=== PATIENT | female | born 1985 | race Caucasian/White ===

== ENCOUNTER 2016-12-10 01:24 | Inpatient (IN) | payer OTHER ==
[~2016-12-10] VITALS: Ht 165.1 cm; Wt 108.9 kg
[2016-12-10] MEDS ORDERED: Lactated Ringer's 1,000 ML IV PRN (16:41)
[2016-12-10] MEDS ORDERED: Methylergonovine 0.2 mg/mL Inj IM PRN (16:45)
[2016-12-10] MEDS ORDERED: Oxytocin 10 Unit/mL Inj IM PRN (16:45)
[2016-12-10] MEDS ORDERED: Hemorrhage Kit, Post Partum XX ONE (16:45)
[2016-12-10] MEDS ORDERED: Sodium Chloride LOK Flush 10 mL Syringe IVFLUSH PRN (16:45)
[2016-12-10] MEDS ORDERED: Oxytocin 30 Units/500 mL LR 30 UNITS in IV Premix 1 EACH IV PRN (16:45)
[2016-12-10] MEDS ORDERED: Carboprost 250 mCg/mL Inj IM PRN (16:45)
[2016-12-10] MEDS ORDERED: fentaNYL-PF 50 mCg/mL 2 mL Inj IVPUSH PRN (16:45)
[2016-12-10] MEDS ORDERED: Misoprostol 25 mCg/0.25 Tablet VAGINAL SCH (16:45)
[2016-12-10 18:21] LABS: Mean Corpuscular Hemoglobin 30.4 pg (27.0-35.0); Mean Corpuscular Volume 90.2 fL (81-100)
--- NOTE | 2016-12-10 18:40 | PCM.HPOB ---
Subjective Date of Service: Dec 10, 2016 Referring Provider: Admitting Physician: Shiela Goncalves MD Primary Care Physician: Americo Hernandez MD Attending Physician: Sihela Goncalves MD Chief Complaint at 40 +4 weeks, labile BP History of Present History of Present Illness Patient is a very pleasant 31-year-old who has had regular care and has an EDC of 12/06/2016 based on a first trimester ultrasound done at 8 weeks and 6 days. Weight gain in the has been 55 pounds. When she was seen last week for routine visit, her blood pressures were noted to be labile and very between 124/65 to 144/90. She also had gained 8 pounds in the week and was having swelling in her feet and lower legs. Baby was active and she was noting sporadic contractions. She had not had any vaginal bleeding or fluid leakage. She was having occasional minor headaches, but no nausea, diplopia, or other signs of illness. Nonstress test 2 were done last week including PIH labs which were reassuring. Patient was seen today in the office and is feeling quite tired and miserable and desirous of induction for postdates . Baby has been active. Blood pressure today was 134/78 in my office. She has edema from the toes up to the knees. Vaginal exam showed vertex at -3 station, cervix was soft the posterior and 75% effaced and probably fingertip os, but I had difficulty reaching this. Risks, benefits, and alternatives to induction of labor were reviewed with her and she signed consent. Recent ultrasound was also done on 11/27/2016 showing YURY of 9.5 cm, estimated weight of 3591 and normal interval growth. Baby was at the 74th percentile. OB History: (2), Para (0), Term (0), Pre-term (0), ( 1), Living Obstetrical Complications: Other (labile BP, excessive weight gain) Past Medical History Obstetrical History: She had an early termination of done in 2007 with D&C and no complications. This is her second and current . Gynecologic History: She has had Pap smears positive for HPV in her teens which were negative on follow-up. Pap smear in this showed ASCUS with positive HPV high risk noted. Pap will be repeated . She has not had any sexually transmitted diseases that she is aware of apart from this. Medical History: She has had chronic lower back pain with degenerative disc disease and a nerve root block done previously. She has had wisdom teeth extraction. She has had mild exercise-induced asthma. Surgical History: She has had a D&C done and was in teeth extraction. 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 She has completed high school and has some college courses. She quit smoking in 2011 and smoked a half a pack per day for 8 years. She did have several episodes of heavier drinking before she knew she was but has not been drinking the rest of the . She has had frequent marijuana use in the earlier part of the to help treat nausea. Hx Tobacco Use: Yes Smoking Status: Former Smoker Years of Smokin Hx Alcohol Use: Yes Hx Substance Use: Yes (patient has had regular use of marijuana prior to ) Past Family History Living Arrangement: with Family Genetic Screening/Counseling Genetic Screening/Counseling: Negative Baby father-had child w defect: No Review of Systems Constitutional: Y: Change of appitite, Dizziness Eyes: Denies: Blurred Vision, Redness, Vision Changes ENT: Denies: Dental Problems, Nasal Congestion, Nose Discharge, Ulcers/Sores in Mouth Cardiovascular: Reports: Edema, Denies: Chest Pain Respiratory: Denies: Cough Gastrointestinal: Reports: Nausea, Denies: Abdominal Pain, Constipation, Diarrhea, Vomiting Genitourinary: Denies: Dysuria Musculoskeletal: Reports: Back Pain Skin/Breasts: Denies: Bruising Skin: Denies: Jaundice Neurological: Reports: Numbness, Denies: Change in Speech Psychologic: Reports: Anxious, Denies: Depression Hematologic: Denies: Adenopathy Allergy Coded Allergies: latex (Verified Allergy, Severe, RASHES, HIVES, HYPERVENTALATE, 12/10/16) Exam Vital Signs 134/75, patient afebrile, heart rate 72, weight in office 248 pounds Exam heart rate reactive with baseline in the 140s Constitutional: Well-developed, Well-nourished, Normal habitus, Obese HEENT: PERRLA, EOMI, Mucous Membr Moist/Lofall Lungs: Clear to Auscultation, Clear to Percussion, Normal Air Movement Heart: Regular Rate/Rhythm, Normal S1, Normal S2, No Murmurs/Rubs/Gallops Abdomen: Gravid, Normal bowel sounds, Soft, No tenderness, No hepatosplenomegaly Lymphatic: Normal: Neck Palpation of Nodes Extremities: Pulses Palpable x4, Warm, Edema Neurological/Psychiatric: Alert, Oriented X3, Cooperative, No Acute Distress Neuro: Grossly Neurologically Intact Labs/Diagnostics Labs Blood type is B+ with no abnormal antibodies. Pap smear was ASCUS with positive HPV high risk. Rubella is immune, RPR nonreactive, hep B surface antigen negative, HIV negative. Urine culture showed mixed urogenital xavier Maternal Blood Type: B Hx Rho(D) Immune Globulin: No Antibody Screen: negative Group B Strep Results: Negative Previous Infant with GBS: No Rubella: Immune Lab History: Negative for: Hx Gonorrhea, Hx HIV, Hx Herpes, Hx Syphilis OB Intrapartum Assessment/Plan Assessment Patient is a pleasant 31-year-old female at 40 weeks +4 days who has had some labile blood pressures but reassuring PIH labs and reassuring NST over the last week. She has had excessive weight gain in of 55 pounds. One hour GTT was elevated at 205 but 3 hour GTT was normal. GBS is negative. She was admitted this afternoon for induction of labor and we will start with Cytotec. Risks, benefits and alternatives to this have been reviewed with her and she is desirous to proceed. Estimated weight is 7-1/2-8 pounds. Problems: (1) Post term over 40 weeks Status: Acute ICD Code: O48.0 (2) Labile blood pressure Status: Acute ICD Code: R09.89 Shiela Goncalves MD Dec 10, 2016 18:40
[2016-12-11] MEDS: Lactated Ringer's 1,000 ML IV SCH ×2 (07:43→09:28)
[2016-12-11] MEDS ORDERED: Lactated Ringer's 500 ML IV ONE (08:06)
[2016-12-11] MEDS ORDERED: Lactated Ringer's 1,000 ML IV SCH (08:06)
[2016-12-11] MEDS ORDERED: Ondansetron 2 mg/mL 2 mL Inj IVPUSH PRN (08:10)
[2016-12-11] MEDS ORDERED: EPHEDrine Sulfate 50 mg/mL Inj IVPUSH PRN (08:10)
[2016-12-11] MEDS ORDERED: Atropine 1 mg/10 mL (Code) Syringe IVPUSH PRN (08:10)
--- NOTE | 2016-12-11 08:19 | PCM.PNOBIP ---
Subjective Date of Service Dec 11, 2016 Delivery plan: Spontaneous Vaginal Delivery Visit History Patient is a pleasant 31-year-old with an EDC of 12/06/2016 who was admitted yesterday afternoon for labor induction at 40+4 weeks. She had had some labile blood pressures but NST 2 and PIH labs 2 in the previous week had been reassuring. Most recent ultrasound was done 11/27/2016 and showed YURY of 9.5 cm and baby in vertex presentation with estimated weight around 74th percentile. Vaginal exams are difficult for her but she started induction with a cervix that was soft but posterior, vertex at -3 station and fingertip loss. She received Cytotec 25 g 1 dose and kicked into labor with this. She had spontaneous rupture of membranes for clear fluid at 02:55 hrs. today and noted increase in the intensity and frequency of her contractions. She was just examined prior to my arrival this morning and was 4 cm, 50% effaced, and vertex at -3 station. heart rate is reactive with baseline in the 130s to 140s with good [id number] variability and good accelerations with no decelerations. She is currently resting having received fentanyl 100 g IV 1 dose and anesthesia has been consulted for epidural. Most recent blood pressure was 134/76, temp 36.8, his heart rate 20 and heart rate 85. After epidural is placed, Pitocin augmentation of labor will be started and vaginal delivery is anticipated later today. Pain Management: Continued Pain Issues Gastrointestinal: No N/V Activity: Other (resting in bed) Group B Strep Results: Negative Rubella: Immune Blood Type: B Labs Laboratory Tests 12/10/16 17:15: White Blood Count 13.8, Red Blood Count 4.50, Hemoglobin 13.7, Hematocrit 40.6, Mean Corpuscular Volume 90.2, Mean Corpuscular Hemoglobin 30.4, Mean Corpuscular Hemoglobin Concent 33.7, Red Cell Distribution Width 13.4, Platelet Count 226 Exam Vital Signs Vital Signs Contraction frequency in minutes: MVUs: Vital Signs: VS reviewed, stable Heart Tracings Heart Tones Baseline 135 bpm Heart Rate Variability: Moderate Heart Rate Accelleration: Present Heart Rate Deceleration: Absent Heart Rate Category: I Tocometry/IUPC Contraction frequency in minutes: MVUs: Sterile Vaginal Exam Cervical Dilation: 4 cms Cervical Effacement: 50 % Station: -3 Exam Lungs: Clear to Auscultation, Clear to Percussion, Normal Air Movement Heart: Regular Rate/Rhythm, Normal S1, Normal S2, No Murmurs/Rubs/Gallops General: Alert, Oriented X3, Cooperative OB Intrapartum Assessment/Plan Assessment Patient is a pleasant 31-year-old at 40+5 weeks today who was admitted yesterday afternoon for labor induction for postdates and labile blood pressures. She has received Cytotec 25 g PV 1 dose and has had SROM for clear fluid overnight. GBS is negative. Fentanyl has been given and she is requesting epidural which will be placed once anesthesia is available. heart rate is reassuring and vaginal delivery is anticipated. Problems: (1) Post term over 40 weeks Status: Acute ICD Code: O48.0 (2) Labile blood pressure Status: Acute ICD Code: R09.89 Intrapartum plan: Continue expected management, Start pitocin Intrapartum Pain Management: May have epidural when desired, IV Fentanyl Pain Evaluation: Pain not Controlled Shiela Goncalves MD Dec 11, 2016 08:19
[2016-12-11] MEDS: Sodium Chloride LOK Flush 10 mL Syringe IVFLUSH SCH ×2 (08:30→16:30)
--- NOTE | 2016-12-11 09:57 | PCM.HPANE ---
Patient Data Date of Service: Dec 11, 2016 Surgeon Admitting Provider:Shiela Goncalves MD Attending Provider:Shiela Goncalves MD Primary Care Physician:Americo Hernandez MD Other Provider:Leni Biswas Anesthesia Reason for Visit Induction INDUCTION Ht/WT & BMI Height (Centimeters): 165 Weight (Kilograms): 109 Body Mass Index 39.9 Allergies Coded Allergies: latex (Verified Allergy, Severe, RASHES, HIVES, HYPERVENTALATE, 12/10/16) Past Anesthesia History Anesthesia History: Denies:: Abnormal Airway, Anesthesia Reactions, Difficult Intubation Diabetes History Hx Diabetes?: No MRSA MRSA: No Medications Hypertension Medication: No Home Meds Incl Beta Allen: No History History of ENT Problems?: No HEENT History: Denies:: Abnormal Airway Difficult Intubation Denture Type: None Teeth Condition: Within Normal Limits Hx of Heart Problems?: No Cardiovascular History: Denies:: Coronary Artery Disease Hypertension Hx of Respiratory Problem?: No Respiratory History: Denies:: Asthma Hx Neurologic Problems?: No Hx of GI Problems?: No Hx of Problems?: No HX of Peritoneal Dialysis: No Female Hx: Positive for:: Currently (inductino) Hx Musculoskeletal Problems?: No Hx of Psycho/Social Problems?: Yes Psycho Social History: Positive for:: Anxiety Hx Surgeries?: No Hx Any Other Health Problems?: Yes (degenerative lumbar disease) Hx Diabetes: No Hx Alcohol Use: YesHx Substance Use: Yes (patient has had regular use of marijuana prior to ) Smoking Status: Former Smoker Stop/Bang Treated for Sleep Apnea?: No Do You Have a CPAP Machine?: No B- Body Mass Index > 35 kg/m2: Yes HILLARY Risk Assessment: High Risk, =/>3 Yes Risk Assessment Category Category 1A: Patient has history of documented sleep apnea, and HAS NOT received any narcotic, sedative or anesthesia administration during this stay. Category 1B: Patient has history of documented sleep apnea, and HAS received any narcotic , sedative or anesthesia administration during this stay Category 2: Patient has SUSPECTED Obstructive Sleep Apnea, and HAS received any narcotic , sedative or anesthesia administration during this stay. Category 3: Patient has SUSPECTED Obstructive Sleep Apnea and HAS NOT received narcotic, sedative or anesthesia administration during this stay. Category 4: Outpatient in Procedural Areas with known sleep apnea or who screen positive for High Risk via the STOP/BANG questionnaire. Exam Exam General Appearance: Alert, Oriented X3, Cooperative, Moderate Distress HEENT/AIRWAY: MP 2, Neck Movement (OK), Mouth Opening (small) Lungs: Clear to Auscultation, Normal Air Movement Heart: Regular Rate/Rhythm, Normal S1, Normal S2, No Murmurs/Rubs/Gallops Meds/Labs/Diagnostics Admission Meds Current Medications Lactated Ringer's (Lr) 1,000 ml @ 125 mls/hr Q8H IV Last administered on 07:43; Start 12/10/16 at 16:41 Misoprostol (Cytotec) 25 mcg Q4H VAGINAL Last administered on 12/10/16 18:09; Start 12/10/16 at 16:45; Stop 12/10/16 at 20:46; Status DC Labs Test 12/10/16 17:15 White Blood Count 13.8th/mm3 (3.8-10.1) Red Blood Count 4.50mil/mm3 (3.90-5.20) Hemoglobin 13.7g/dL (12.0-15.6) Hematocrit 40.6% (35.0-46.0) Mean Corpuscular Volume 90.2fL (81-100) Mean Corpuscular Hemoglobin 30.4pg (27.0-35.0) Mean Corpuscular Hemoglobin Concent 33.7% (32.0-37.0) Red Cell Distribution Width 13.4% (12.3-15.4) Platelet Count 226bil/L (150-400) Plan Impression Patient chart reviewed, patient interviewed and anesthestic plan with risks, benefits, and alternatives discussed, and informed consent obtained. NPO per Anesth. Guidelines: No ASA Physical Status: ASA3 Severe Disease (morbid obesity) Anesthetic Plan: SAB Bene/Risks/Altern/Consents: Yes HP Complete Prior to Induction: Yes Clemente Jordan MD Dec 11, 2016 08:09
[2016-12-11] MEDS ORDERED: Carboprost 250 mCg/mL Inj IM ONE (12:00)
[2016-12-11] MEDS ORDERED: Acetaminophen IV 1,000 mg IV PRN (13:45)
[2016-12-11] MEDS: fentaNYL 2 mCg/mL-Bupiv 0.125% 100 ML EPIDURAL SCH ×2 (16:50→22:36)
--- NOTE | 2016-12-11 20:35 | PCM.PNOBIP ---
Subjective Date of Service Dec 11, 2016 Delivery plan: Spontaneous Vaginal Delivery Visit History Patient has been laboring all day, and when examined at 13:00 hrs, was noted to be only 2cm, 100% effaced with vertex at -3 station. Patient was challenging to examine, as she found the pelvic exams very uncomfortable. She had had epidural placed earlier, and had been sleeping, and had finally relaxed enough for an accurate pelvic exam. Over the afternoon, she had made much better progress, and has been dilating about 1 cm per hour since reaching 3 cm. When re-examined at 20:00 hours, she was noted to be 9 cm, 100% effaced, and vertex is at-2 station. The head is asynclitic, with caput noted. Scant blood tinged amniotic fluid is noted, with normal bloody show. FHR baseline is in the 130's with good BTBV. There are sleep wake cycles noted, and she is alana every 1 to 3 minutes. Her position has been changed multiple times and she has had epidural top up earlier on. is still anticipated. Pain Management: Epidural, Continued Pain Issues Gastrointestinal: No N/V Activity: Other (resting comfortably in bed) Group B Strep Results: Negative Rubella: Immune Blood Type: B Labs Laboratory Tests 12/10/16 17:15: White Blood Count 13.8, Red Blood Count 4.50, Hemoglobin 13.7, Hematocrit 40.6, Mean Corpuscular Volume 90.2, Mean Corpuscular Hemoglobin 30.4, Mean Corpuscular Hemoglobin Concent 33.7, Red Cell Distribution Width 13.4, Platelet Count 226 Exam Vital Signs Vital Signs Contraction frequency in minutes: MVUs: Vital Signs: VS reviewed, stable Heart Tracings Heart Tones Baseline 135 bpm Heart Rate Variability: Moderate Heart Rate Accelleration: Present Heart Rate Deceleration: Absent Heart Rate Category: I Tocometry/IUPC Contraction frequency in minutes: MVUs: Sterile Vaginal Exam Cervical Dilation: 9 cms Cervical Effacement: 100 % Station: -2 Exam Lungs: Clear to Auscultation, Normal Air Movement Heart: Regular Rate/Rhythm, Normal S1, Normal S2, No Murmurs/Rubs/Gallops General: Alert, Oriented X3, Cooperative OB Intrapartum Assessment/Plan Assessment 31 year old at 40+5 weeks admitted yesterday afternoon for labor induction for post dates and labile BP. She made slow progress in latent stage of labor, and did not tolerate labor well, pain vega. Her epidural is working effectively, and she is making good progress in active labor. The baby's head is asynclitic. She had SROM 02:55 hrs ( > 18 hours ago). Ampicillin will be started; GBS is negative. is anticipated. Problems: (1) Post term over 40 weeks Status: Acute ICD Code: O48.0 (2) Labile blood pressure Status: Acute ICD Code: R09.89 Intrapartum plan: Continue expected management, Start pitocin Intrapartum Pain Management: IV Fentanyl, Epidural Pain Evaluation: Adequate Pain Control Intrapartum Antibiotics: Ampicillin Shiela Goncalves MD Dec 11, 2016 20:35
[2016-12-11] MEDS ORDERED: Ampicillin Inj 2,000 MG in 0.9% Sodium Chloride 100 ML IV ONE (20:40)
[2016-12-12] MEDS: SODIUM CHLORIDE 0.9% IV SCH ×4 (00:44→12:30)
[2016-12-12] MEDS: AMPICILLIN IV SCH ×4 (00:44→12:30)
--- NOTE | 2016-12-12 03:36 | PCM.PNOBIP ---
Subjective Date of Service Dec 12, 2016 Delivery plan: Spontaneous Vaginal Delivery Visit History Patient has been laboring overnight and at 22:00 on 12/11/2016 she had an anterior lip of cervix from 9 o'clock up and around to 1 to 2 o'clock. Caput persists and is 1 to 2 cm thick on the asynclitic head. Maternal position has been changed multiple times, and ampicillin was started, she has received 2 doses thus far, temp 37.4 to 37.6 range. FHR baseline was 145 to 150's and variability was less. She is on her 6th bag of IV fluids, shin was removed earlier, as we have tried pushing over several episodes, while reducing the cervix, but this has persisted. Mother has alot of soft tissue in the perineal area. Pitocin has been increased to 22 milliunits and she has been ruptured over 24 hours. Contractions have spaced out to every 3 minutes and her epidural has been effective for her. She is nearly at 6 hours with no cervical change. Pain Management: Epidural Gastrointestinal: No N/V Activity: Other (resting comfortably in bed) Group B Strep Results: Negative Rubella: Immune Blood Type: B Labs Laboratory Tests 12/10/16 17:15: White Blood Count 13.8, Red Blood Count 4.50, Hemoglobin 13.7, Hematocrit 40.6, Mean Corpuscular Volume 90.2, Mean Corpuscular Hemoglobin 30.4, Mean Corpuscular Hemoglobin Concent 33.7, Red Cell Distribution Width 13.4, Platelet Count 226 Exam Vital Signs Vital Signs Contraction frequency in minutes: MVUs: Vital Signs: VS reviewed, concerns are (temp 37.4 to 37.6 range) Heart Tracings Heart Tones Baseline 145 to 150 bpm Tocometry/IUPC Contraction frequency in minutes: MVUs: Sterile Vaginal Exam Cervical Dilation: 9 cms Cervical Effacement: 100 % Station: -1 Exam Lungs: Clear to Auscultation, Normal Air Movement Heart: Regular Rate/Rhythm, Normal S1, Normal S2, No Murmurs/Rubs/Gallops General: Alert, Oriented X3, Cooperative OB Intrapartum Assessment/Plan Assessment 31 year old at 40 +5 weeks who was admitted on 12/10/2016 for post-dates and labile BP, and received cytotec 25mcg PV x 1 dose which started her into labor. She had SROM for clear fluid at 02:55 on 12/11/2016 and has been on pitocin for hours, dose currently at 22 milliunits per minute. Her epidural has been topped up 3 times and patient's tolerance of labor pain has been hard for her. We have changed position multiple times, and she is on her 6th bag of IV fluids. FHR is 140 to 150's, with some variability. A cervical lip has persisted for nearly 6 hours now. Mom is currently resting. Primary c/section may be warranted, given lack of progress in labor. She is obese and has gained 55lbs in the , and has alot of soft tissue in the pelvis that is difficult for the baby to descend thru. Problems: (1) Post term over 40 weeks Status: Acute ICD Code: O48.0 (2) Labile blood pressure Status: Acute ICD Code: R09.89 Intrapartum plan: Continue expected management, Start pitocin Intrapartum Pain Management: IV Fentanyl, Epidural Pain Evaluation: Adequate Pain Control Intrapartum Antibiotics: Ampicillin Shiela Goncalves MD Dec 12, 2016 03:35
[2016-12-12] MEDS ORDERED: Sodium Citrate-Citric Acid 15 mL Solution ONE (04:28)
[2016-12-12] MEDS ORDERED: Atropine 0.4 mg/mL Inj IV PRN (05:20)
[2016-12-12] MEDS ORDERED: fentaNYL-PF 50 mCg/mL 2 mL Inj IVPUSH PRN (05:20)
[2016-12-12] MEDS ORDERED: EPHEDrine Sulfate 50 mg/mL Inj IVPUSH PRN (05:20)
--- NOTE | 2016-12-12 06:31 | PCM.CONSUR ---
Subjective Date of Service: Dec 12, 2016 History of Present Illness Patient is a very pleasant 31-year-old who has had regular care with Dr. Shiela Goncalves and has an EDC of 12/06/2016 based on a first trimester ultrasound done at 8 weeks and 6 days. Weight gain in the has been 55 pounds. She was seen last week for routine visit, her blood pressures were noted to be labile and vary between 124/65 to 144/90. She also had gained 8 pounds in the week and was having swelling in her feet and lower legs. Baby was active and she was noting sporadic contractions. She had not had any vaginal bleeding or fluid leakage. She was having occasional minor headaches, but no nausea, diplopia, or other signs of illness. Nonstress test 2 were done last week including PIH labs which were reassuring. Patient was seen in the office and is feeling quite tired and miserable and desirous of induction for postdates . Baby has been active. Blood pressure was 134/78 in my office. She has edema from the toes up to the knees. Vaginal exam showed vertex at -3 station, cervix was soft the posterior and 75% effaced and probably fingertip os, but I had difficulty reaching this. Risks, benefits , and alternatives to induction of labor were reviewed with her and she signed consent. Recent ultrasound was also done on 11/27/2016 showing YURY of 9.5 cm, estimated weight of 3591 and normal interval growth. Baby was at the 74th percentile. OB History: (2), Para (0), Term (0), Pre-term (0), ( 1), Living Obstetrical Complications: Other (labile BP, excessive weight gain) The patient was admitted for induction of labor by Dr. Goncalves and she progressed to 9cm, however she failed to make any further change for 7hours. I was consulted to perform a for failure to progress. Reason for Consultation Primary delivery for failure to progress. Allergy Allergies: Coded Allergies: latex (Verified Allergy, Severe, RASHES, HIVES, HYPERVENTALATE, 12/10/16) Medications Hypertension Medication: No Home Meds Incl Beta Blockers: No Past Surgical History Surgeries: No Patient/Family Past Surgical: Denies:: Anesthesia Reactions Social History Hx Alcohol Use: Yes Hx Substance Use: Yes (patient has had regular use of marijuana prior to ) Hx Tobacco Use: Yes Years of Smokin PMH HEENT History History of ENT Problems?: No HEENT History: Denies:: Abnormal Airway Difficult Intubation Cardiovascular History History of Heart Problems?: No Cardiovascular History: Denies:: Coronary Artery Disease Hypertension Respiratory History of Respiratory Problem: No Respiratory History: Denies:: Asthma Neurological History Hx Neurologic Problems?: No Gastrointestinal History HX of GI Problems?: No Genitourinary History Hx of Gu Problems?: No Female/Male History Reproductive History Female: Positive for: Currently ? (inductino) Musculoskeletal History Hx Musculoskeletal Problems?: No Psycho Social History Hx of Psycho/Social Problems?: Yes Psycho Social History: Positive for:: Anxiety Other History Hx Any Other Health Problems?: Yes (degenerative lumbar disease) Diabetes: No Social History Hx Alcohol Use: YesHx Substance Use: Yes (patient has had regular use of marijuana prior to )Hx Tobacco Use: Yes Smoking Status: Former Smoker Years of Smokin Objective Exam Result Diagram: 12/10/16 1715 Review of Systems: Constitutional: Negative, except as otherwise mentioned in the history above. Ophthalmologic: Negative, except as otherwise mentioned in the history above. Cardiovascular: Negative, except as otherwise mentioned in the history above. Respiratory: Negative, except as otherwise mentioned in the history above. Gastrointestinal: Negative, except as otherwise mentioned in the history above. Genitourinary: Negative, except as otherwise mentioned in the history above. Musculoskeletal: Negative, except as otherwise mentioned in the history above. Neurological: Negative, except as otherwise mentioned in the history above. Psychiatric: Negative, except as otherwise mentioned in the history above. Hematologic/Lymphatic: Negative, except as otherwise mentioned in the history above. Allergic/Immunologic: Negative, except as otherwise mentioned in the history above. H&P Surgical Exam Exam General: Alert, Oriented X3, Cooperative Assessment & Plan Problems: (1) Post term over 40 weeks Status: Acute ICD Code: O48.0 (2) Labile blood pressure Status: Acute ICD Code: R09.89 (3) Failure to progress in labor, delivered, current hospitalization Plan: Plan for primary delivery. The risks of delivery were explained to the patient and informed consent was signed. Status: Acute ICD Code: O62.2 Ike Adams MD Dec 12, 2016 06:31
[2016-12-12] MEDS ORDERED: Lactated Ringer's 1,000 ML IV SCH (06:32)
[2016-12-12] MEDS ORDERED: Methylergonovine 0.2 mg/mL Inj IM PRN (06:35)
[2016-12-12] MEDS ORDERED: Oxytocin 30 Units/500 mL LR 30 UNITS in IV Premix 1 EACH IV PRN (06:35)
[2016-12-12] MEDS ORDERED: Acetaminophen IV 1,000 MG in IV Premix 1 EACH IV PRN (06:35)
[2016-12-12] MEDS ORDERED: hydrOXYzine Pamoate 25 mg Capsule PO PRN (06:35)
[2016-12-12] MEDS ORDERED: Sodium Chloride LOK Flush 10 mL Syringe IVFLUSH PRN (06:35)
[2016-12-12] MEDS ORDERED: LANOlin HPA 7 Gm Ointment TOPICAL PRN (06:35)
[2016-12-12] MEDS ORDERED: Oxytocin 10 Unit/mL Inj IM PRN (06:35)
[2016-12-12] MEDS ORDERED: Carboprost 250 mCg/mL Inj IM PRN (06:35)
[2016-12-12] MEDS ORDERED: Hemorrhage Kit, Post Partum XX ONE (06:35)
[2016-12-12] MEDS ORDERED: diphenhydrAMINE 50 mg Capsule PO PRN (06:35)
--- NOTE | 2016-12-12 06:50 | PCM.ANEP1 ---
Post Anesthesia PACU Phase 1 Assessment Date of Service: Dec 12, 2016 Vital Signs See Anesthetic record and OB documentation Anesthetic Administered: Epidural Level of Alertness: Awake, talking LUNA's with Equal Strength: No Pain: No Pain Scale Score: 0 Nausea or Vomiting: No CV Function & Hydration Stable: Yes Airway Device: Oxygen Delivery: Room Air Lungs: Normal Air Movement Dermatome Level: T10 (Umbilicus) PACU Phase 2 Assessment Complications: No Follow up Care: No Patient Instructions Provided: N/A Clemente Jordan MD Dec 12, 2016 06:50
[2016-12-12] MEDS ORDERED: Oxytocin 10 Unit/mL Inj ONE (07:13)
[2016-12-12] MEDS ORDERED: Morphine PF 1 mg/mL 10 mL Inj ONE (07:13)
[2016-12-12] MEDS ORDERED: Bupivacaine 0.5% 50 mL Inj ONE (07:13)
[2016-12-12] MEDS ORDERED: Ondansetron 2 mg/mL 2 mL Inj ONE (07:13)
[2016-12-12] MEDS: Ascorbic Acid 500 mg Tablet PO SCH (08:00)
[2016-12-12] MEDS: Sodium Chloride LOK Flush 10 mL Syringe IVFLUSH SCH (08:30)
--- NOTE | 2016-12-12 12:19 | OP ---
[address] [address] OPERATIVE REPORT PATIENT: YANNICK BARRETT : 1985 MR#: [id number] ADMIT: 12/10/2016 JOB ID: [id number] DATE OF SURGERY: 12/12/2016 PREOPERATIVE DIAGNOSIS(ES): 1. Failure to progress. 2. At 40 weeks 4 days gestation. 3. Gestational hypertension. POSTOPERATIVE DIAGNOSIS(ES): 1. Failure to progress. 2. At 40 weeks 4 days gestation. 3. Gestational hypertension. PROCEDURE PERFORMED: Primary low transverse delivery. SURGEON: Ike Adams MD. EXCHANGE TROUBLE SHOOTER: Shiela Goncalves MD. ANESTHESIA: Epidural. ESTIMATED BLOOD LOSS: 600 mL. COMPLICATIONS: None. PATHOLOGY SENT: None. FINDINGS AT THE TIME OF SURGERY: Female infant in a cephalic presentation with an infant weight of 4000 g. was in an occiput posterior position. There was a two-vessel cord noted upon delivery. Dr. Shiela Goncalves was necessary for this procedure to help with exposure and delivery. INDICATION FOR PROCEDURE: The patient is a 31-year-old, 2, para 0, at 40 weeks gestation with an estimated due date of December 06, 2016, who was brought in for induction of labor by Dr. Shiela Goncalves for gestational hypertension. She was induced and made cervical change to 9 cm and progressed further. I was consulted for a delivery for arrest of descent. PROCEDURE DESCRIPTION: The patient was taken to the operating room, where her epidural anesthesia was found be adequate. She was placed in a lithotomy position in a leftward tilt, and prepared and draped in a normal sterile fashion. A Pfannenstiel incision was made with a scalpel. This was carried down to the underlying fascia with the Bovie cautery. The fascia was nicked in the midline and the incision extended laterally with the Michelle scissors. The rectus muscles were in midline. The perineum was entered bluntly with surgeon's hands. This incision was extended with gentle traction. The lower uterine segment was identified. A bladder flap was created, and the uterus incised in a low transverse fashion with a scalpel. The was delivered in a cephalic presentation without difficulty. The cord was clamped after 1 minute and handed off to the waiting elementary instructional coach and respiratory therapist. Cord blood was sent. The placenta was removed manually and the uterus exteriorized and cleared of all clots and debris. The uterine incision was repaired in two layers with 0 Vicryl suture. Good hemostasis was assured. The gutters were then irrigated with copious amounts of normal saline. The uterus was somewhat boggy, so Hemabate was injected directly into the myometrium which helped to firm up the uterus. The uterus was then returned to the patient's peritoneal cavity and more irrigation was performed. The incision was inspected and noted to be hemostatic. The lower portion of the rectus muscles reapproximated with two interrupted sutures of 0 chromic suture in interrupted fashion. The fascia was then reapproximated with 0 Vicryl suture in a running fashion. The subcutaneous layer was closed with 0 plain gut. The skin was closed with 4-0 Monocryl in a subcuticular fashion. Dermabond and Steri-Strips applied. All lap, instrument and needle counts were correct x2 at the end of the procedure. The patient was taken to her room awake and in good condition.
[2016-12-12] MEDS ORDERED: oxyCODONE-Acetamin 5-325 mg Tablet PO PRN (18:45)
[2016-12-13 09:18] LABS: Mean Corpuscular Hemoglobin 30.4 pg (27.0-35.0); Mean Corpuscular Volume 92.1 fL (81-100)
[2016-12-13] MEDS: Ascorbic Acid 500 mg Tablet PO SCH (15:52)
[2016-12-14] MEDS: Ascorbic Acid 500 mg Tablet PO SCH (09:03)
[2016-12-14] MEDS ORDERED: Ascorbic Acid PO (11:07)
[2016-12-14] MEDS ORDERED: OXYC5TAB72 PO (11:07)
[2016-12-14] MEDS ORDERED: IBUP800T28 PO (11:07)
[2016-12-14] MEDS ORDERED: DOCU-41 PO (11:07)
[2016-12-14] MEDS ORDERED: FERR-74 PO (11:07)
--- NOTE | 2016-12-14 11:10 | PCM.DIOB ---
Obstetrical Disch Instruction Date of Service: Dec 14, 2016 Dates of Hospitalization Date of Hospital Admission Dec 10, 2016 at 16:11 Providers Admitting Physician: Shiela Goncalves MD Primary Care Physician: Americo Hernandez MD Attending Physician: Shiela Goncalves MD Discharge Diagnosis Problems: (1) Post term over 40 weeks Status: Acute ICD Code: O48.0 (2) Labile blood pressure Status: Acute ICD Code: R09.89 (3) Failure to progress in labor, delivered, current hospitalization Status: Acute ICD Code: O62.2 (4) care and examination immediately after delivery Plan: Doing well. Plan to discharge home today. Status: Acute ICD Code: Z39.0 Diet Discharge Diet: No restrictions Activity Discharge Activity-General: Pelvic Rest for 6 weeks, Try not to overdue, Be up and about, Balance rest and activity, Activity as pain allows, No lifting >10 pounds for 4-6 weeks Dressing and Incisional Care Hygiene: May shower, Wash incision with soap & water, DO NOT soak incision under water, NO bathtub, hot tub or whirlpool (for two weeks), Perineal care, Sitz bath, Dermoplast spray Follow Up Plan Follow-up Provider (F9): Ike Adams MD Follow-up appointment: Weeks (2) Call your provider for: Fever or Chills, Shortness of breath, Heavy vaginal bleeding, Heavy bleeding, Red painful breasts Ike Adams MD Dec 14, 2016 11:10
--- NOTE | 2016-12-14 11:20 | PCM.PNOBPP ---
Subjective Date of Service Dec 14, 2016 Post : Primary [facility] Delivery Visit History The patient is a 31-year-old, 2, para 0, at 40 weeks gestation with an estimated due date of December 06, 2016, who was brought in for induction of labor by Dr. Shiela Goncalves for gestational hypertension. She was induced and made cervical change to 9 cm and progressed further. I was consulted for a delivery for arrest of descent. Subjective No complaints today Lochia: Normal Pain Management: Epidural Gastrointestinal: No N/V Postop Activity: Ambulating Independently, Other (resting comfortably in bed) Group B Strep Results: Negative Rubella: Immune Blood Type: B Labs Laboratory Tests 12/13/16 08:15: White Blood Count 16.9, Red Blood Count 3.03, Hemoglobin 9.2, Hematocrit 27.9, Mean Corpuscular Volume 92.1, Mean Corpuscular Hemoglobin 30.4, Mean Corpuscular Hemoglobin Concent 33.0, Red Cell Distribution Width 13.2, Platelet Count 184 Exam Vital Signs Vital Signs: VS reviewed, stable Exam Abdomen: Fundus firm Extremities: No cords, Edema 1+ General: Alert, Oriented X3 Surgical Wound : Incision General Appearence: Intact, No Erythemia, No Discharge OB Post Assessment/Plan Problems: (1) Post term over 40 weeks Status: Acute ICD Code: O48.0 (2) Labile blood pressure Status: Acute ICD Code: R09.89 (3) Failure to progress in labor, delivered, current hospitalization Status: Acute ICD Code: O62.2 (4) care and examination immediately after delivery Plan: Doing well. Discharge home today. Status: Acute ICD Code: Z39.0 Pain Evaluation: Adequate Pain Control Post plan: Anticipate discharge home today Ike Adams MD Dec 14, 2016 11:20
--- NOTE | 2016-12-14 11:22 | PCM.DC.OB ---
Obstetrical Discharge Summary Date of Service Dec 14, 2016 Date of hospital admission Dec 10, 2016 at 16:11 Date of Discharge: Dec 14, 2016 Providers Admitting Physician: Shiela Goncalves MD Primary Care Physician: Americo Hernandez MD Attending Physician: Shiela Goncalves MD Problems: (1) Post term over 40 weeks Status: Acute ICD Code: O48.0 (2) Labile blood pressure Status: Acute ICD Code: R09.89 (3) Failure to progress in labor, delivered, current hospitalization Status: Acute ICD Code: O62.2 (4) care and examination immediately after delivery Plan: Discharge home. Status: Acute ICD Code: Z39.0 Invasive procedures Primary [facility]CS Pathology 12/12/2016 Brief History and Physical: The patient is a 31-year-old, 2, para 0, at 40 weeks gestation with an estimated due date of December 06, 2016, who was brought in for induction of labor by Dr. Shiela Goncalves for gestational hypertension. She was induced and made cervical change to 9 cm and progressed further. I was consulted for a delivery for arrest of descent. ([Ascorbic Acid]) 500 MG TABLET 500 MG PO DAILYWM Prescribed by: IKE ADAMS MD Docusate Sodium (Colace) 100 Mg Capsule 100 MG PO BID Prescribed by: IKE ADAMS MD Ferrous Sulfate (Feosol) 325 Mg Tablet 325 MG PO BIDWM Prescribed by: IKE ADAMS MD Ibuprofen (Ibuprofen) 800 Mg Tablet 800 MG PO Q6H PRN PRN For Pain Prescribed by: IKE ADAMS MD oxyCODONE (oxyCODONE) 5 Mg Tablet 5-10 MG PO Q4H PRN PRN For Pain Prescribed by: IKE ADAMS MD Discharge Diet: No restrictions Discharge Activity-General: Pelvic Rest for 6 weeks, Try not to overdue, Be up and about, Balance rest and activity Ike Adams MD Dec 14, 2016 11:22
== END 2016-12-14 12:00 | disposition home or self-care (01) | DRG 766 ==
LOC: FBC 16:11
PROVIDERS: ADMIT Family Medicine; ATTEND Family Medicine
PROC: 10H07YZ Insertion of Other Device into Products of Conception, Via Natural or Artificial Opening (ICD-10-PCS; 2016-12-10)
PROC: 3E033VJ Introduction of Other Hormone into Peripheral Vein, Percutaneous Approach (ICD-10-PCS; 2016-12-10)
PROC: 10D00Z1 Extraction of Products of Conception, Low, Open Approach (ICD-10-PCS; principal; 2016-12-12 04:56)
DX: O48.0 Post-term pregnancy (principal); O13.4 Gestational [pregnancy-induced] hypertension without significant proteinuria, complicating childbirth; O62.1 Secondary uterine inertia; Z3A.40 40 weeks gestation of pregnancy; Z37.0 Single live birth